=== PATIENT | female | born 1990 ===

== ENCOUNTER 2021-07-26 19:15 | Outpatient (CLI) | payer BC ==
[~2021-07-26] VITALS: Ht 165.1 cm; Wt 72.7 kg
--- NOTE | 2021-07-26 19:20 | NUR ---
Ambulatory to unit for labor assessment, accompanied by spouse. Oriented toroom, monitor, plan of care. Questions invited and answered. Pt reports "low back pain since 6am" SVE as noted.
[2021-07-26 19:30] VITALS: TEMP 98.4
[2021-07-26 20:52] VITALS: BP 114/71; PULSE 76
--- NOTE | 2021-07-26 20:52 | NUR ---
Repeat SVE with no changes noted. Lack of cervical change discussed with pt and spouse. Explained "sometimes first baby's take a long time" pt verbalizes understanding.
[2021-07-27] MEDS ORDERED: PRENATAL TABLET PO (09:05)
[2021-07-27] MEDS ORDERED: COLACE 100100 MG/CAP PO (09:07)
== END 2021-07-26 20:30 | disposition home or self-care (01) ==
LOC: LDR 19:15 → LDRO 19:15 → LDR 20:10 → LDRO 20:30
DX: O47.1 False labor at or after 37 completed weeks of gestation (principal); Z3A.39 39 weeks gestation of pregnancy

== ENCOUNTER 2021-07-27 08:21 | Inpatient (IN) | payer BC ==
[~2021-07-27] VITALS: Ht 165.1 cm; Wt 72.7 kg
[2021-07-27] VITALS (39 sets, daily range): BP systolic 92–142; BP diastolic 51–82; PULSE 63–103; TEMP 98–98.2
--- NOTE | 2021-07-27 08:30 | NUR ---
0815- Pt arrives on unit via wheelchair with complaints of contractions since 0200 this morning. 0817- Pt into bed, EFM and TOCO on and tracing well. O2 sat monitor on and tracing maternal HR. VSS. Pt denies LOF. by this RN /-2, bloody show noted on exam glove. Assessment completed.
[2021-07-27 08:55] LABS: HEMOGLOBIN 12.8 g/dl (12.5-16.0); MEAN CELL VOLUME 96 fl (80.0-100.0); MEAN CORPUSCULAR HEMOGLOBIN 33 pg (27-31); MEAN CORPUSCULAR HGB CONC 35 g/dl (33.0-37.0); MEAN PLATELET VOLUME 12.2 fl (7.4-10.4); PLATELET COUNT 126 K/mm3 (130-400); RED BLOOD COUNT 3.84 M/mm3 (4.10-5.30); REDCELL DISTRIBUTION WIDTH-CV 13.3 % (11.5-14.5)
[2021-07-27 08:58] LABS: HEMATOCRIT 36.9 % (37.0-47.0)
[2021-07-27] MEDS ORDERED: PRENATAL TABLET PO (09:05)
[2021-07-27] MEDS ORDERED: COLACE 100100 MG/CAP PO (09:07)
[2021-07-27 09:22] LABS: LYMPHOCYTE 3 % (20.0-51.0); NEUTROPHILS 97 % (42.0-75.2); PLATELET ESTIMATE DECREASED (NORMAL)
--- NOTE | 2021-07-27 10:41 | NUR ---
1030- Pt assisted to sittin on side of bed for epidural placement. Dianna, JUAN CARLOS at bedside. O2 sat monitor on and tracing maternal HR. 1041- Test dose, see anesthesia record. 1046- Pt assisted to semi-fowlers with WL. O2 sat monitor off. Pt tolerated well.
--- NOTE | 2021-07-27 11:20 | NUR ---
1120- Dr Castellon at bedside. Dr Horan is assuming care of Pt at 1200.
--- NOTE | 2021-07-27 14:00 | NUR ---
1349- FHR tracing in the 70's 1351- This RN to bedside, adjusted, appears to be tracing maternal HR. O2 sat monitor on and tracing.
--- NOTE | 2021-07-27 15:00 | NUR ---
1450- SVE by this RN, complete/+1. Moderate amount of amniotic fluid noted with exam, this RN suspects baby is OP. 1457- Pt assisted to knee chest. Tolerated position change well.
--- NOTE | 2021-07-27 15:30 | NUR ---
1515- Pt assisted to supine, semi-fowlers. Claire removed without difficulty. Pt coached on pushing technique. 1524- Pt begins pushing with UCs. Tolerates well.
--- NOTE | 2021-07-27 15:45 | NUR ---
FHR tracing intermittently while Pt is pushing.
--- NOTE | 2021-07-27 16:05 | NUR ---
1556- Dr Horan at bedside. Pt and room prepped for delivery. Lennie Nursery RN at bedside. Pt continues pushing with [facility]. 1605- of viable male infant. To mother's abd for delayed cord clamping. Tended to by Nursery RN. 1612- Spontaneous delivery of placenta. Fundus massaged to firm by . Repair completed. Pericare completed, ice pack to perineum. Pt assisted to high-fowlers. placed skin-2-skin.
--- NOTE | 2021-07-27 21:49 | NUR ---
PATIENT ASSISTED TO SITTING POSITION AT SIDE OF BED. PATIENT TOLERATED THIS ACTIVITY WITHOUT ANY CONCERNS OF DIZZINESS OR LIGHTHEADEDNESS. EPIDURAL CATHETER REMOVED. PATIENT STOOD AT BEDSIDE AND IS ABLE TO MOVE BOTH LEGS WITHOUT DIFFICULTY. ONE PERSON STANDBY ASSIST TO THE BATHROOM. UNABLE TO URINATE AT THIS TIME. NEW MESH UNDERWEAR, MIAH-PAD AND GOWN PROVIDED. PATIENT THEN WALKED FROM LABOR ROOM TO ROOM WITH ONE PERSON ASSIST, ACCOMPANIED BY AND SPOUSE. PATIENT AND SPOUSE ORIENTED TO ROOM.
[2021-07-28 03:15] VITALS: BP 90/52; PULSE 63; TEMP 97.8
[2021-07-28 08:00] VITALS: BP 102/58; PULSE 87; TEMP 98.1
--- NOTE | 2021-07-28 08:00 | NUR ---
Rests in bed, alert. Denies any discomfort at this time. Baby brought to room from nursery.
--- NOTE | 2021-07-28 08:45 | NUR ---
Sits up in bed eating breakfast. Ibuprofen 800 mg given as ordered. Refuses tylenol at this time.
[2021-07-28] MEDS ORDERED: IBU800 M1 PO (10:52)
--- NOTE | 2021-07-28 16:48 | NUR ---
Rests in bed, alert. Ibuprofen 800 mg given as ordered and per request.
[2021-07-28 19:15] VITALS: BP 105/56; PULSE 82; TEMP 97.9
[2021-07-29 08:55] VITALS: BP 102/56; PULSE 74; TEMP 98.3
[2021-07-29 12:58] VITALS: BP 106/69; PULSE 98; TEMP 98.9
--- NOTE | 2021-07-29 15:45 | NUR ---
1545-Reviewed discharge instructions with patient. Questions answered. 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 1620-Ambulatory off unit.
== END 2021-07-29 16:20 | disposition home or self-care (01) | DRG 807 ==
LOC: LDRO 08:21 → LDR 08:34 → OB 20:43
PROVIDERS: ADMIT Obstetrics & Gynecology
PROC: 10E0XZZ Delivery of Products of Conception, External Approach (ICD-10-PCS; principal; 2021-07-27)
PROC: 0KQM0ZZ Repair Perineum Muscle, Open Approach (ICD-10-PCS; 2021-07-27)
PROC: 10907ZC Drainage of Amniotic Fluid, Therapeutic from Products of Conception, Via Natural or Artificial Opening (ICD-10-PCS; 2021-07-27)
PROC: 0UQMXZZ Repair Vulva, External Approach (ICD-10-PCS; 2021-07-27)
DX: O99.02 Anemia complicating childbirth (principal); Z37.0 Single live birth; D64.9 Anemia, unspecified; O70.1 Second degree perineal laceration during delivery; Z3A.39 39 weeks gestation of pregnancy
CPT/HCPCS: J2405; J2590; J7120